=== PATIENT | male | born 1960 | race African-American/Black ===

== ENCOUNTER 2019-08-05 21:49 | Emergency (ER) | payer BC ==
[~2019-08-05] VITALS: Ht 172.7 cm; Wt 102.1 kg
[2019-08-05] MEDS ORDERED: LOVASTATIN 20 M20 MG PO (21:57)
[2019-08-05] MEDS ORDERED: METFORMIN HCL500 M3 PO (21:57)
[2019-08-05] MEDS ORDERED: PRINIVIL10 MG PO (21:57)
[2019-08-05] MEDS ORDERED: OMEPRAZOLE40 MG PO (21:57)
[2019-08-05] MEDS ORDERED: LEVEMIR FL100 UNIT/2 SUBQ (21:58)
[2019-08-05] MEDS ORDERED: NAPROSYN500 MG PO (22:37)
[2019-08-05] MEDS ORDERED: NORFLEX100 MG PO (22:37)
[2019-08-05] MEDS ORDERED: ULTRAM 50MG TAB50 MG PO (22:37)
[2019-08-05 22:50] VITALS: BP 131/75
== END 2019-08-05 22:59 | disposition home or self-care (01) ==
LOC: ER 21:49
DX: S16.1XXA Strain of muscle, fascia and tendon at neck level, initial encounter (principal); E11.9 Type 2 diabetes mellitus without complications; Z79.4 Long term (current) use of insulin; Z79.899 Other long term (current) drug therapy; V43.52XA Car driver injured in collision with other type car in traffic accident, initial encounter; Y93.I9 Activity, other involving external motion; Y92.488 Other paved roadways as the place of occurrence of the external cause; Y99.8 Other external cause status

== ENCOUNTER 2019-11-04 07:51 | Inpatient (IN) | payer BC ==
[2019-11-04] VITALS (13 sets, daily range): BP systolic 105–144; BP diastolic 61–94
[~2019-11-04] VITALS: Ht 172.7 cm; Wt 99.3 kg
[~2019-11-04 07:51] MED LIST: LEVEMIR FL100 UNIT/2 SUBQ; LOVASTATIN 20 M20 MG PO; METFORMIN HCL500 M3 PO; NAPROSYN500 MG PO; NORFLEX100 MG PO; OMEPRAZOLE40 MG PO; PRINIVIL10 MG PO; ULTRAM 50MG TAB50 MG PO
[2019-11-04 08:25] LABS: ABSOLUTE NEUTROPHILS 8.3 thou/uL (1.4-8.2); BASOPHILS 1.1 % (0.0-2.0); EOSINOPHILS 0.5 % (0.0-3.0); HEMATOCRIT 40.4 % (42.0-52.0); HEMOGLOBIN 13.6 gm/dL (14.0-18.0); MCH 29.3 pg (26.0-34.0); MCHC 33.7 g/dL (28.0-37.0); MCV 87.1 fL (80.0-100.0); MONOCYTES 7.3 % (1.0-8.0); PLATELET COUNT 279 thou/uL (150-400); POLYS 66.1 % (36.0-66.0); RBC 4.64 mil/uL (4.50-6.00); RDW 13.6 % (10.5-14.5); WBC 12.6 thou/uL (4.0-11.0)
[2019-11-04 08:33] LABS: CALCIUM 9.6 mg/dL (8.5-10.1); CREATININE 1.1 mg/dL (0.7-1.3); POTASSIUM 4.3 mmol/L (3.5-5.1)
[2019-11-04 08:49] LABS: TROPONIN-I 8.35 ng/mL (<0.06)
[2019-11-04 09:02] LABS: CHOLESTEROL 152 mg/dL (<200); HDL CHOLESTEROL 50 mg/dL (>40); LDL CHOLESTEROL 76 mg/dL (<100); TRIGLYCERIDE 132 mg/dL (<150); VLDL 26 mg/dL (<40)
--- NOTE | 2019-11-04 09:11 | EKG ---
[facility] [place] [address] ELECTROCARDIOGRAM REPORT Name: ARIK SANTO Room #: 160- ADM IN M.R.#: [id number] Admission: 11/04/19 Attend Phys: Carlos Pinto MD, Discharge: Date of : 58 Report #: [id number] THIS REPORT FOR: cc: [facility] - Clinic physician unknown [facility] - Clinic physician unknown Fidencio Olsen MD [facility] ~ THIS REPORT FOR: //name// [facility] ED Test Date: 2019-11-04 Test Time: 08:03:10 Pat Name: ARIK SANTO Department: Room: [facility] Gender: M Sagger Preparer: SELVIN ARMENTA : 1960 Requested By: Jac Wahl Order Number: [id number] MD: Fidencio Olsen Measurements Intervals [place] Rate: 104 P: 50 AR: 138 QRS: 4 QRSD: 90 T: 17 QT: 331 QTc: 436 Interpretive Statements Sinus tachycardia Anterior infarct, acute (LAD) Baseline wander in lead(s) V1,V4,V5 No previous ECG available for comparison Electronically Signed On 11-04-2019 9:09:47 CDT by Fidencio Olsen [email or web address] <ELECTRONICALLY SIGNED> By: Fidencio Olsen MD, [facility] 11/04/19908 2 2 Fidencio Olsen MD, [facility] /EPI
--- NOTE | 2019-11-04 09:12 | EKG ---
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
--- NOTE | 2019-11-04 17:40 | NUR ---
ASSUMED CARE AT 1045, PATIENT ARRIVED FROM CATHLAB S/P STENT PLACEMENT. ASSESSMENT CHARTED. PATIENT C/O CP ON ARRIVAL AND MEDARDO GRISSOM DERRICK MAN NOTIFIED, AND PATTIENT TREATED PER CP PROTOCOL. PATIENT REPORTED THAT CP PAIN IS 4/10 AT THIS TIME. SEE POST CARDIAC CATH ASSESSMENT. AND WILL CONTINUE WITH POC.
--- NOTE | 2019-11-05 05:15 | NUR ---
ASSUMED PT CARE AT 1900. PT IS ALERT AND ORIENTED. NO SIGN OF DISTRESS NOTED IN PT. RIGHT GROIN SITE IS INTACT. PT VERBALIZES CHEST PAIN AND HEADACHE. PAIN MEDICATION ADMINISTERED TO PT. ELEVATED HEART RATE NOTED. DOUBLE END SEWER NOTIFIED. LOPRESSOR ORDERED. ASSESSMENT COMPLETED AND DOCUMENTED. SCHEDULED MEDS ADMINISTERED TO PT. PT IS STABLE THROUGH THE NIGHT. NO NEEDS REQUESTED AT THIS TIME.
[2019-11-05 05:22] LABS: HEMATOCRIT 37.2 % (42.0-52.0); HEMOGLOBIN 12.7 gm/dL (14.0-18.0); MCH 29.9 pg (26.0-34.0); MCHC 34.2 g/dL (28.0-37.0); MCV 87.6 fL (80.0-100.0); RBC 4.25 mil/uL (4.50-6.00); RDW 13.3 % (10.5-14.5); WBC 12.4 thou/uL (4.0-11.0)
[2019-11-05 05:41] VITALS: BP 125/80
[2019-11-05 06:06] LABS: ALBUMIN 3.3 g/dL (3.4-5.0); CALCIUM 8.9 mg/dL (8.5-10.1); CREATININE 1.2 mg/dL (0.7-1.3); POTASSIUM 4.2 mmol/L (3.5-5.1); TOTAL BILIRUBIN 0.6 mg/dL (0.2-1.0); TOTAL PROTEIN 7.5 g/dL (6.4-8.2)
[2019-11-05 06:14] LABS: TROPONIN-I 13.88 ng/mL (<0.06)
[2019-11-05 07:15] VITALS: BP 111/75
--- NOTE | 2019-11-05 08:46 | EKG ---
[facility] [place] [address] ELECTROCARDIOGRAM REPORT Name: ARIK SANTO Room #: 200-I ADM Neelam M.R.#: [id number] Admission: 11/04/19 Attend Phys: Carlos Pinto MD, Discharge: Date of : 58 Report #: [id number] THIS REPORT FOR: cc: [facility] - Clinic physician unknown [facility] - Clinic physician unknown Fidencio Olsen MD [facility] ~ THIS REPORT FOR: //name// [facility] Test Date: 2019-11-04 Test Time: 14:08:58 Pat Name: ARIK SANTO Department: Room: 200 I Gender: M Septic Tank Setter: Familia HORN : 1960 Requested By: Linette Mcconnell Order Number: [id number] MD: Fidencio Olsen Measurements Intervals [place] Rate: 103 P: 41 [place]: 149 QRS: 25 QRSD: 82 T: 28 QT: 326 QTc: 427 Interpretive Statements Sinus tachycardia Anterior infarct, recent Compared to ECG 11/04/2019 08:23:[address] segment elevation, improved Electronically Signed On 11-05-2019 8:45:16 CDT by Fidencio Olsen [email or web address] <ELECTRONICALLY SIGNED> By: Fidencio Olsen MD, [facility] 11/05/19 0845 1408 1408 Fidencio Olsen MD, [facility] /EPI
--- NOTE | 2019-11-05 08:52 | EKG ---
[facility] [address] ELECTROCARDIOGRAM REPORT Name: ARIK SANTO Room #: 200-I [address]M 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: [facility] : 1960 Requested By: Carlos Pinto Order Number: [id number] MD: Fidencio Olsen Measurements Intervals [place] Rate: 99 P: 47 [place]: 149 QRS: 40 QRSD: 84 T: 50 QT: 326 QTc: 419 Interpretive Statements Sinus rhythm Extensive anterior infarct, recent Compared to ECG 11/04/2019 08:23:39 Sinus tachycardia no longer present Persistent ST segment elevation Electronically Signed On 11-05-2019 8:51:32 CDT by Fidencio Olsen [email or web address] <ELECTRONICALLY SIGNED> By: Fidencio Olsen MD, [facility] 11/05/19 0851 Fidencio Olsen MD, [facility] /EPI
--- NOTE | 2019-11-05 09:44 | 2DMMODE ---
[facility] [place] [address] 2 D/M-MODE ECHOCARDIOGRAM Name: ARIK SANTO Room #: 200-I ADM Neelam Parker#: [id number] Admission: 11/04/19 Attend Phys: Carlos Pinto MD, Discharge: Date of : 58 Report #: [id number] THIS REPORT FOR: cc: [facility] - Clinic physician unknown [facility] - Clinic physician unknown Carlos Pinto MD [facility] ~ APPROVED REPORT Study performed: 11/05/2019 08:46:19 EXAM: Comprehensive 2D, Doppler, and color-flow Echocardiogram Patient Location: Echo lab Room #: 200 Status: routine BSA: 2.15 HR: 100 bpm BP: 125/80 mmHg Rhythm: Sinus tach Other Information Study Quality: Good Indications NSTEMI status post PCI. Hx: DM, HTN, HLP. 2D Dimensions RVDd: 38.09 mm IVSd: 16.00 (7-11mm) LVOT Diam: 21.00 (18-24mm) LVDd: 45.00 mm PWd: 12.00 (7-11mm) Ascending Ao: 32.00 (22-36mm) LVDs: 32.00 (25-40mm) Aortic Root: 32.86 mm Volumes Left Atrial Volume (Systole) Single Plane 4CH: 44.14 mL Single Plane 2CH: 39.53 mL LA ESV Index: 21.00 mL/m2 Aortic Valve AoV Peak Johnnie.: 1.44 m/s AO Peak Gr.: 8.29 mmHg LVOT Max P.87 mmHg LVOT Max V: 1.21 m/s RUFINO Vmax: 2.82 cm2 [facility] [address] [place] [address] 2 D/M-MODE ECHOCARDIOGRAM Name: ARIK SANTO Room #: 200-I [facility].#: [id number] Admission: 11/04/19 Attend Phys: Carlos Pinto, Discharge: Date of : 58 Report #: [id number] Mitral Valve E/A Ratio: 0.8 MV Decel. Time: 119.90 ms MV E Max Johnnie.: 0.53 m/s MV A Johnnie.: 0.67 m/s MV PHT: 34.77 ms IVRT: 66.90 ms Pulmonary Valve PV Peak Johnnie.: 1.24 m/s PV Peak Gr.: 6.16 mmHg Pulmonary Vein P Vein S: 0.55 m/s P Vein D: 0.41 m/s P Vein S/D Ratio: 1.34 Tricuspid Valve RAP Estimate: 5.00 mmHg Left Ventricle The left ventricle is normal size. Regional wall motion abnormalities are noted. Mild to moderate concentric left ventricular hypertrophy. Left ventricular systolic function is mild to moderately decreased. LVEF is 40-45%.ant apical distal septal hypokinesis Mild diastolic dysfunction is present (impaired relaxation pattern). Right Ventricle The right ventricle is normal size. The right ventricular systolic function is normal. Atria The left atrium size is normal. The right atrium size is normal. Aortic Valve The aortic valve is normal in structure; minimally calcified. No aortic regurgitation is present. There is no aortic valvular stenosis. Mitral Valve The mitral valve is normal in structure. Trace to mild mitral regurgitation. No evidence of mitral valve stenosis. Tricuspid Valve The tricuspid valve is normal in structure. There is no tricuspid [facility] [address] [place] [address] 2 D/M-MODE ECHOCARDIOGRAM Name: SANTOARIK Room #: 200-I [facility] IN .R.#: [id number] Admission: 11/04/19 Attend Phys: Carlos Pinto, Discharge: Date of : 58 Report #: [id number] valve regurgitation noted. Unable to assess PA pressure. Pulmonic Valve The pulmonary valve is normal in structure. Trace pulmonic regurgitation. Great Vessels The aortic root is normal in size. The ascending aorta is normal in size. IVC is normal in size and collapses >50% with inspiration. Pericardium There is no pericardial effusion. <Conclusion> The left ventricle is normal size. Mild to moderate concentric left ventricular hypertrophy. LVEF is 40-45%.ant apical distal septal hypokinesis Mild diastolic dysfunction is present (impaired relaxation pattern). The right ventricle is normal size. The left atrium size is normal. The aortic valve is normal in structure; minimally calcified. Trace to mild mitral regurgitation. There is no tricuspid valve regurgitation noted. Unable to assess PA pressure. The aortic root is normal in size. There is no pericardial effusion. <ELECTRONICALLY SIGNED> By: Carlos Pinto MD, FACC 11/05/19941 1 1 Carlos Pinto MD, FACC /INF
[2019-11-05 11:10] VITALS: BP 94/57
--- NOTE | 2019-11-05 12:23 | CATHLAB ---
[facility] [place] [address] INVASIVE PROCEDURE REPORT Name: ARIK SANTO Room #: 200-I ADM Neelam Parker#: [id number] Admission: 11/04/19 Attend Phys: Carlos Pinto MD, Discharge: Date of : 58 Report #: [id number] THIS REPORT FOR: cc: [facility] - Clinic physician unknown [facility] - Clinic physician unknown Carlos Pinto MD [facility] ~ APPROVED REPORT Study performed: 11/04/2019 08:25:07 Patient Details Patient Status: ED Room #: The patient is a 59 year-old male Event Personnel Carlos Pinto Desizing Pad Operator, Marco Lemus RN RN, Meryl Self RN, Yusra Dowling RTR, KAILASH Murguia, Alis Poole Monitor Procedures Performed Art Access - R femoral artery* Left Heart Cath w/or w/o Coronaries [id number] [facility] Aortogram Abdominal Peripheral Angio 820479 [address] Place w/wo Plasty Single LAD 445580 Hemostasis w/ Mynx 92487 Initial Mod Sed Same Phys/QHP Gr5y 994018 24712 Mod Sed Same Phys/QHP Ea 076553 Indication Chest pain Procedure Narrative The Right Groin^ was infiltrated with subcutaneous anesthesia. A PINNACLE 6FR Sheath #[id number] sheath was inserted into the RFA 6F^. Coronary angiography was performed using coronary diagnostic catheters. The right coronary system was accessed and visualized with a JR4 catheter. The left coronary system was accessed and visualized with a JL4 catheter. The left ventricle was accessed and visualized with a STR PIG catheter. Left ventriculogram was performed in 30 degree projection. The patient tolerated the procedure well and there were no complications associated with the procedure. There was no hematoma. Intraoperative Conscious Sedation Sedation start time: 833 Case end Time: 939 [facility] [place] [address] INVASIVE PROCEDURE REPORT Name: ARIK SANTO Room #: 200-I [facility] IN .R.#: [id number] Admission: 11/04/19 Attend Phys: Carlos Pinto, Discharge: Date of : 58 Report #: [id number] Fentanyl 100 mcg Versed 1 mg Fluoro Time: 10.20 minutes Dose: DAP 11449.30 cGycm2 1733 mGy Contrast Type and Amount: Visipaque 260 ml Hemodynamics The aortic pressure is 143/49 mmHg with a mean of 89 mmHg. The left ventricular pressure is 152/16 mmHg with a mean of mmHg. The left ventricular end diastolic pressure is 26 mmHg. PCI Technique Lesion Percutaneous coronary intervention was performed on the Unspecified. A LAUNCHER 6FR EBU 3.5 #[id number] Guide Catheter was used to engage the LAD ostium. A Luge Wire .014 x 182CM #[id number] Interventional Guidewire was used to cross the lesion. BALLOON DILATION A Balloon catheter Sprinter OTW 2.5 x 12 #[id number] was inserted and inflated up to 8.00atm for 19seconds. Additional Inflation: 8.00atm for 12seconds. Additional Inflation: 0.00atm for 13seconds. ADDL INFLATION 14ATM FOR 13 SEC. STENT DEPLOYMENT A stent RESOLUTE JUAN MANUEL RX 2.75 X 12 #[id number] was inserted and inflated up to kimberley for 14ATMM FOR 28 SECseconds. Conclusion #1. Successful emergent PTCA stent of a proximally occluded LAD acute infarct vessel. Placement of a 2.75 x 15 resolute drug-eluting stent MIKKI grade III flow no dissection or thrombus noted distally. #2 left main mild calcification extremely short left main without significant occlusive disease #3 almost a separate ostial takeoff of the circumflex which is moderate in size although technically nondominant. Mild irregularities. #4 dominant right coronary artery with mild irregularities and calcification no occlusive disease #5 normal left jugular size with anterior apical hypokinesis EF 40 to 45% suspect stunning #6 normal abdominal aortogram no evidence of aneurysm bilateral renal arteries widely patent. Recommendations and plan: Continue aggressive risk factor modification. Dual antiplatelet therapy initiated. Will transfer to [address] [address] INVASIVE PROCEDURE REPORT Name: HANSAARIK Room #: 200-I [facility] IN M.R.#: [id number] Admission: 11/04/19 Attend Phys: Carlos Pinto, Discharge: Date of : 58 Report #: [id number] CCU in stable but guarded condition. Improvement in hemodynamics EKG and chest pain. Follows stent protocol. <ELECTRONICALLY SIGNED> By: Carlos Pinto MD, FACC 11/05/19 122 21 122 Carlos Pinto MD, FACC /INF
[2019-11-05 15:35] VITALS: BP 97/58
[2019-11-05 20:17] VITALS: BP 109/73
[2019-11-06 05:06] VITALS: BP 90/53
--- NOTE | 2019-11-06 05:20 | NUR ---
ASSUMED PT CARE AT 1900. PT IS ALERT AND ORIENTED. NO SIGN OF DISTRESS NOTED IN PT. PT IS STABLE. DENIES ANY PAIN. ASSESSMENT COMPLETED AND DOCUMENTED. PT IS AMBULATORY AND INDEPENDENT. VITAL SIGNS STABLE. BLOOD SUGAR CHECKED. SCHEDULED MEDS ADMINISTERED TO PT. PT IS STABLE THROUGH OUT THE NIGHT. CONTINUE TO MONITOR PT. DENIES ANY NEEDS AT THIS TIME.
[2019-11-06 05:36] LABS: HEMATOCRIT 35.4 % (42.0-52.0); MCH 29.7 pg (26.0-34.0); MCV 87.2 fL (80.0-100.0); RBC 4.06 mil/uL (4.50-6.00); RDW 13.1 % (10.5-14.5); WBC 9.6 thou/uL (4.0-11.0)
[2019-11-06 06:08] LABS: ALBUMIN 2.8 g/dL (3.4-5.0); CALCIUM 8.6 mg/dL (8.5-10.1); CREATININE 1.1 mg/dL (0.7-1.3); POTASSIUM 4.1 mmol/L (3.5-5.1); TOTAL BILIRUBIN 0.6 mg/dL (0.2-1.0); TOTAL PROTEIN 6.9 g/dL (6.4-8.2)
[2019-11-06 07:14] VITALS: BP 111/68
[2019-11-06] MEDS ORDERED: JARDIANCE10 MG PO (07:24)
[2019-11-06] MEDS ORDERED: ASPIRIN325 PO (07:24)
[2019-11-06] MEDS ORDERED: METOPROLOL SUCC50 MG PO (07:24)
[2019-11-06] MEDS ORDERED: EFFIENT10 MG PO (07:24)
[2019-11-06] MEDS ORDERED: LIPITOR40 MG PO (07:24)
[2019-11-06] MEDS ORDERED: BENICAR20 MG PO (07:24)
[2019-11-06] MEDS ORDERED: TRADJENTA5 MG PO (07:24)
[2019-11-06 09:14] VITALS: BP 111/68
--- NOTE | 2019-11-06 10:04 | NUR ---
PT.'S IV'S REMOVED AT THIS TIME, NO SIGN'S OF INFECTIN, INFILTRATION. RIGHT GROIN SITE REMAINS HEMATOMA FREE. PT. DENIES ANY CHEST PAIN AND NO SOB EITHER. "EXCITED TO GO HOME TODAY". CALLED FOR TRANSPORTATION/PICKUP. DISCUSSED HIS MEDICATION CHANGES AND CAN RESUME HIS METFORMIN NOW WITH MEALS. PT. NSR ON MONITOR, NO ECTOPY OBSERVED. DISCUSSED CARDIAC REHAB AND MANAGING HIS DIABETES.
--- NOTE | 2019-11-06 10:50 | NUR ---
Late Note: Spiritual Care Consult [id number] completed on this pateint by this News Librarian at time of assessment.
--- NOTE | 2019-11-06 10:58 | NUR ---
PT. DISCHARGED AT THIS TIME TO HOME, NO QUESTIONS AT THIS TIME. BILATERAL IV'S REMOVED. NSR ON MONITOR.
--- NOTE | 2019-11-06 13:01 | HC ---
[facility] [place] [address] CONSULTATION Name: ARIK SANTO Room #: 200-I [facility] IN .R.#: [id number] Admission: 11/04/19 Attend Phys: Carlos Pinto MD, Discharge: 11/06/19 Date of : 58 Report #: [id number] THIS REPORT FOR: cc: [facility] - Clinic physician unknown [facility] - Clinic physician unknown Julien Espinoza MD ~ CC: [facility] unknown Carlos Pinto DATE OF SERVICE: 11/05/2019 ENDOCRINE CONSULTATION NOTE CONSULTING PHYSICIAN: Dr. Pinto. REASON FOR CONSULTATION: Type 2 diabetes mellitus, uncontrolled. HISTORY OF PRESENT ILLNESS: This is a 59-year-old male patient whose medical background is significant for type 2 diabetes mellitus and hypertension, who presented yesterday with unstable angina marked by lingering chest pain over a period of 3 weeks associated with radiation to both arms and shortness of breath. The patient was identified as having an acute coronary event and was shortly thereafter managed with a stent placement in the LAD. He is doing fairly well since then. The patient's history of type 2 diabetes mellitus dates back to about 20 years. His current regimen consists of metformin 500 mg b.i.d., Levemir 6-12 units b.i.d., Humalog 6-12 units b.i.d. The patient notes that his blood glucose levels vary significantly and can go anywhere from 100 to 300 mg/dL. He does not encounter significant or frequent issues with hypoglycemia. The patient is known to have diabetic retinopathy and is undergoing injection therapy for both eyes. He is not aware of issues pertaining to diabetic nephropathy. The patient has slight sporadic encounters with peripheral neuropathy affecting his right foot. He did not have documented prior history of CAD, prior to this admission. The patient is hypertensive and is maintained on treatment with lisinopril 10 mg daily. He is also known to have hyperlipidemia and is maintained on lovastatin 20 mg daily. REVIEW OF SYSTEMS: CONSTITUTIONAL: Fatigue, tiredness, but not fever or chills or body weight changes. HEENT: Negative for sore throat, sinus pain or ear drainage. PULMONARY: Dyspnea on exertion, but not cough or hemoptysis. CARDIAC: Chest pain as noted above, radiation to both upper extremities, [address] [address] CONSULTATION Name: ARIK SANTO Room #: 200-I [facility] IN .R.#: [id number] Admission: 11/04/19 Attend Phys: Carlos Pinto MD, Discharge: 11/06/19 Date of : 58 Report #: [id number] dyspnea on exertion. GASTROINTESTINAL: Abdominal discomfort, nausea, but no vomiting. NEUROLOGY: Negative for loss of consciousness, seizure activity. Severe frequent headaches, but noted for subtle intermittent issues with right foot tingling, numbness and discomfort. PSYCHIATRIC: Negative for depression, anxiety, hallucinations, delusions. SKIN: Negative for rash, ulceration or other major changes. Otherwise, his review of systems noncontributory other than those mentioned in HPI. PAST MEDICAL HISTORY: 1. Type 2 diabetes mellitus. 2. Hypertension. 3. Hyperlipidemia. 4. Diabetic retinopathy. 5. Diabetic neuropathy. 6. GERD. 7. ST elevation myocardial infarction. OUTPATIENT MEDICATIONS: Metformin ER 500 mg b.i.d., Levemir insulin 6-12 units b.i.d., Humalog insulin 6-12 units b.i.d., lisinopril 10 mg daily, lovastatin 20 mg daily, omeprazole daily. ALLERGIES: No known drug allergies. FAMILY HISTORY: Noncontributory. 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 He is , has 5 children. He does not smoke. Drinks alcohol only occasionally. PHYSICAL EXAMINATION GENERAL: Pleasant -Maldivian male patient who is not in apparent distress. VITAL SIGNS: Blood pressure is 125/80 mmHg, heart rate is 110 beats per minute, respirations 18 per minute, temperature 37.4 degrees Celsius. CONSTITUTIONAL: He is sitting upright, appears comfortable, not in apparent distress. HEENT: Anicteric sclerae. Intact extraocular motions. NECK: Supple, without JVD. No thyromegaly. CHEST: Noted for good air entry bilaterally without wheeze or crackles. HEART: Regular rate and rhythm without murmurs or gallops. ABDOMEN: Soft, lax. No guarding. Active bowel sounds. EXTREMITIES: Lower extremity exam is negative for ankle edema, skin breaks or ulcerations. NEUROLOGIC: Awake, alert and oriented to time, place and person. The remainder [address] [address] CONSULTATION Name: ARIK SANTO Room #: 200-I [facility] IN M.R.#: [id number] Admission: 11/04/19 Attend Phys: Carlos Pinto MD, Discharge: 11/06/19 Date of : 58 Report #: [id number] of his examination is nonfocal. PSYCHIATRIC: Pleasant, interactive. Normal mood, normal affect. Normal thought process. LABORATORY RESULTS: Blood glucose on arrival was 170 and has since hovered between 231 and 269 mg/dL. Otherwise, sodium 132, potassium 4.2, chloride 96, CO2 of 26, anion gap 10, BUN 21, creatinine 1.2, glucose 201. AST 105, total bilirubin 0.6, calcium 8.9, alkaline phosphatase 61, ALT 37, total protein 67.5, albumin 3.3, eGFR 75. Troponin 13.88. Total cholesterol 152, triglycerides 132, HDL 50, LDL 76. White blood count 12.4, hemoglobin 12.7, hematocrit 37.2, platelets 257. Hemoglobin A1c 9.0%. ASSESSMENT AND PLAN: 1. Type 2 diabetes mellitus. The patient's baseline is uncontrolled judging by his hemoglobin A1c as well as by his reported blood glucose values. It is noticeable that the patient's intake of insulin is highly inconsistent. He was counseled about the pathogenesis of type 2 diabetes mellitus and about the close relationship to cardiovascular disease as well as the need to achieve and maintain adequate control. Given the occurrence of an acute coronary event, the patient would be an ideal candidate for antidiabetic agents that are known to provide significant cardiovascular disease risk reduction. Specifically, I advised the patient that on discharge, I would like him to be placed on Levemir insulin 10 units twice a day, continue with metformin ER 500 mg b.i.d., which will be on hold for 2 more days, given his recent angiogram, start Jardiance 10 mg p.o. daily, start Victoza 0.6 mg daily for a week to progress to 1.2 mg subcutaneous daily thereafter. With these changes, I would like to hold off on a regular Humalog intake and use this on an as needed basis only. The patient was counseled at length about the mechanism of action, safety and tolerability of Jardiance and Victoza since these would be newer agents to him and he verbalizes agreement and understanding of this plan. I advised him to follow up with me in 2-3 weeks from the time of his discharge. In the immediate setting, the patient is maintained on a Humalog supplemental scale only, I will start Lantus 16 units daily as of now, as well as Tradjenta daily starting now in an attempt to keep his blood glucose values below 180 mg/dL. I will continue with the Humalog supplemental scale low intensity as well as blood glucose monitoring a.c. and at bedtime. 2. Hypertension. The patient's level of blood pressure control is adequate on the current regimen, he is to continue with the same. 3. Hyperlipidemia. I agree with a transition to high intensity statin therapy given the documentation of coronary artery disease at this point. The patient was counseled about the need for aggressive LDL reduction towards lowering his future cardiovascular disease risk. 4. Coronary artery disease. As noted above, the patient had suffered an ST elevation myocardial infarction and ended up undergoing [place] [address] CONSULTATION Name: ARIK SANTO Room #: 200-I [facility] IN ..#: [id number] Admission: 11/04/19 Attend Phys: Carlos Pinto MD, Discharge: 11/06/19 Date of : 58 Report #: [id number] with stent placement in his LAD. The patient is currently stable. The patient understands the need to adhere to medical therapy towards the prevention of future cardiovascular disease, morbidity and mortality as noted above. I certainly appreciate this consultation by Dr. Pinto. <ELECTRONICALLY SIGNED> By: Julien Espinoza MD 11/06/19 1301 1055 1248 Julien Espinoza MD /nt
== END 2019-11-06 11:30 | disposition home or self-care (01) | DRG 247 ==
LOC: ER 07:51 → 2N 08:29 → TBACV 08:29 → 2N 08:41
PROVIDERS: Emergency Medicine; Nurse Practitioner Adult Health; ADMIT Internal Medicine Cardiovascular Disease; ATTEND Internal Medicine Cardiovascular Disease
PROC: 4A023N7 Measurement of Cardiac Sampling and Pressure, Left Heart, Percutaneous Approach (ICD-10-PCS; principal; 2019-11-04)
PROC: B211YZZ Fluoroscopy of Multiple Coronary Arteries using Other Contrast (ICD-10-PCS; principal; 2019-11-04)
PROC: B215YZZ Fluoroscopy of Left Heart using Other Contrast (ICD-10-PCS; principal; 2019-11-04)
PROC: 027034Z Dilation of Coronary Artery, One Artery with Drug-eluting Intraluminal Device, Percutaneous Approach (ICD-10-PCS; principal; 2019-11-04)
DX: I21.3 ST elevation (STEMI) myocardial infarction of unspecified site (principal); E11.65 Type 2 diabetes mellitus with hyperglycemia; R00.0 Tachycardia, unspecified; I10 Essential (primary) hypertension; E78.2 Mixed hyperlipidemia; E11.319 Type 2 diabetes mellitus with unspecified diabetic retinopathy without macular edema; E11.40 Type 2 diabetes mellitus with diabetic neuropathy, unspecified; K21.9 Gastro-esophageal reflux disease without esophagitis; I25.10 Atherosclerotic heart disease of native coronary artery without angina pectoris; E78.00 Pure hypercholesterolemia, unspecified; Z82.49 Family history of ischemic heart disease and other diseases of the circulatory system; Z79.899 Other long term (current) drug therapy
CPT/HCPCS: 10081

== ENCOUNTER → 2019-12-11 | Outpatient (CLI) | payer BC ==
[~2019-12-11] MED LIST changes: +ASPIRIN325 PO; +BENICAR20 MG PO; +EFFIENT10 MG PO; +JARDIANCE10 MG PO; +LIPITOR40 MG PO; +METOPROLOL SUCC50 MG PO; +TRADJENTA5 MG PO
== END ==
LOC: SJCVCIMAG 09:03
PROVIDERS: ATTEND Internal Medicine Cardiovascular Disease
DX: I51.7 Cardiomegaly (principal); I25.10 Atherosclerotic heart disease of native coronary artery without angina pectoris; I25.2 Old myocardial infarction; Z95.5 Presence of coronary angioplasty implant and graft

== ENCOUNTER → 2020-04-20 | Outpatient (CLI) | payer BC ==
[~2020-04-20] MED LIST changes: +BYSTOLIC 5 MG5 MG PO; +CIALIS5 MG PO; +PROTONIX40 M2 PO; +VICTOZA 3-0.6 MG/0.1 SUBQ
== END ==
LOC: SJCVCIMAG 16:28
PROVIDERS: ATTEND Internal Medicine Cardiovascular Disease
DX: I25.10 Atherosclerotic heart disease of native coronary artery without angina pectoris (principal); R07.9 Chest pain, unspecified; Z95.5 Presence of coronary angioplasty implant and graft

== ENCOUNTER 2020-04-22 08:07 | Observation (INO) | payer BC ==
[~2020-04-22] VITALS: Ht 172.7 cm; Wt 109.8 kg
[2020-04-22] VITALS (13 sets, daily range): BP systolic 109–156; BP diastolic 58–84
[~2020-04-22 08:07] MED LIST changes: -BYSTOLIC 5 MG5 MG PO; -CIALIS5 MG PO; -PROTONIX40 M2 PO; -VICTOZA 3-0.6 MG/0.1 SUBQ
[2020-04-22 08:53] LABS: HEMATOCRIT 40.7 % (42.0-52.0); HEMOGLOBIN 13.5 gm/dL (14.0-18.0); MCH 28.1 pg (26.0-34.0); MCHC 33.2 g/dL (28.0-37.0); MCV 84.6 fL (80.0-100.0); RBC 4.81 mil/uL (4.50-6.00); WBC 7.9 thou/uL (4.0-11.0)
[2020-04-22] MEDS ORDERED: VICTOZA 3-0.6 MG/0.1 SUBQ (09:01)
[2020-04-22] MEDS ORDERED: BYSTOLIC 5 MG5 MG PO (09:02)
[2020-04-22 09:03] LABS: CALCIUM 9.2 mg/dL (8.5-10.1); CREATININE 1.4 mg/dL (0.7-1.3); POTASSIUM 3.7 mmol/L (3.5-5.1)
[2020-04-22] MEDS ORDERED: PROTONIX40 M2 PO (09:08)
[2020-04-22] MEDS ORDERED: CIALIS5 MG PO (09:08)
--- NOTE | 2020-04-22 15:27 | CATHLAB ---
[facility] [place] [address] INVASIVE PROCEDURE REPORT Name: ARIK SANTO Room #: 211-P ADM Neelam Parker#: [id number] Admission: 04/22/20 Attend Phys: Carlos Pinto MD, Discharge: Date of : 58 Report #: [id number] THIS REPORT FOR: cc: NO FAMILY PHYSICIAN or PCP NO FAMILY PHYSICIAN or PCP Carlos Pinto MD [facility] ~ APPROVED REPORT Study performed: 04/22/2020 09:16:51 Patient Details Patient Status: Out-Patient Room #: The patient is a 59 year-old male Event Personnel Carlos Pinto Front Counter Attendant, Marco Lemus RN RN, Mario Simmons RTR ScrubRashel Alison RT(R)() Monitor, Alis Poole C4 Planner Procedures Performed Art Access - R femoral artery* Left Heart Cath w/or w/o Coronaries 3180363 [facility] Place w/wo Plasty Single CIRC 282335 Hemostasis w/ Mynx 53997 Initial Mod Sed Same Phys/QHP Gr5y 357147 14662 Mod Sed Same Phys/QHP Ea 744177 Procedure Narrative The Right Groin^ was infiltrated with 1% Lidocaine subcutaneous anesthesia. A PINNACLE 6FR Sheath #[id number] sheath was inserted into the RFA 6F^. Coronary angiography was performed using coronary diagnostic catheters. The right coronary system was accessed and visualized with a JR4 catheter. The left coronary system was accessed and visualized with a JL4 catheter. The left ventricle was accessed and visualized with a PIGTAIL catheter. The patient tolerated the procedure well and there were no complications associated with the procedure. There was no hematoma. Intraoperative Conscious Sedation Fentanyl 75 mcg Versed 1 mg Fluoro Time: 6.90 minutes Dose: DAP 10685.80 cGycm2 Contrast Type and Amount: Visipaque 100 ml Hemodynamics [facility] [place] [address] INVASIVE PROCEDURE REPORT Name: SANTOMARIELAARIK Room #: 211-P [facility] M.R.#: [id number] Admission: 04/22/20 Attend Phys: Carlos FamiliaJohn Pinto, Discharge: Date of : 58 Report #: [id number] The aortic pressure is 134/80 mmHg with a mean of 103 mmHg. The left ventricular pressure is 132/13 mmHg with a mean of mmHg. The left ventricular end diastolic pressure is 24 mmHg. PCI Technique Lesion Percutaneous coronary intervention was performed on the mid circumflex artery segment. A LAUNCHER 6FR EBU 3.5 #[id number] Guide Catheter was used to engage the ostium. A Luge Wire .014 x 182CM #[id number] Interventional Guidewire was used to cross the lesion. STENT DEPLOYMENT A drug-eluting stent RESOLUTE JUAN MANUEL OTW 2.5 X 15 #[id number] was inserted and inflated up to 8.00atm for 18seconds. Additional Inflation: 12.00atm for 31seconds. Additional Inflation: 15.00atm for 32seconds. POST STENT DEPLOYMENT BALLOON DILATION A Balloon catheter TREK NC OTW 2.75 X 12 #[id number] was inserted and inflated up to 15.00atm for 35seconds. Additional Inflation: 18.00atm for 25seconds. Conclusion #1. Successful PTCA stent of the mid distal circumflex eccentric 80 to 90% lesion to 0% placement of a 2.5 x 12 resolute drug-eluting stent MIKKI grade III flow into a 1 large distal OM branch. Nondominant moderate distribution. #2 there is a very short left main mildly diseased there is no dampening of the catheter with injection or the guide. So do not believe to be significant left main stenosis. This left main is essentially nonexistent with almost separate takeoff of LAD and circumflex. #3 the LAD extends to the apex it is a smaller and calcified vessel proximal stent has minimal in-stent restenosis. 30 to 40% irregularity proximal to that stent #4 a small ramus branch is a high-grade lesion but this is 1.0 mm vessel. No indication for intervention. #5 large right coronary artery anatomically dominant giving rise to a mild disease PDA. Moderate eccentric lesion in a small posterior lateral branch. #6 normal left ventricular size and LV function lower limits of normal subtle anterior apical wall leg. EF 50%. Recommendations and plan: Continue aggressive risk factor [address] [address] INVASIVE PROCEDURE REPORT Name: ARIK SANTO Room #: 211-P [facility] M.R.#: [id number] Admission: 04/22/20 Attend Phys: Carlos Pinto, Discharge: Date of : 58 Report #: [id number] modification. Dual antiplatelet therapy has been initiated. Patient will transfer to [facility] to follow post coronary stent protocol. <ELECTRONICALLY SIGNED> By: Carlos Pinto MD, FACC 04/22/20 1527 1527 1527 Carlos Pinto MD, FACC /INF
--- NOTE | 2020-04-22 18:16 | NUR ---
PT ADMITED FROM [facility]. ADMISSION HX AND ASSESSMENT COMPLETED. VSS. DENIED HAVING PAIN OR DISCOMFORT. RIGHT GROIN INCISION C/D/I. NO HEMATOMA NOTED. SR/SB ON TELE. NO CONCERNS AT THIS TIME.
[2020-04-23 03:21] VITALS: BP 128/67
[2020-04-23 05:42] LABS: HEMATOCRIT 39.1 % (42.0-52.0); HEMOGLOBIN 12.8 gm/dL (14.0-18.0); MCH 27.9 pg (26.0-34.0); MCHC 32.8 g/dL (28.0-37.0); MCV 85.1 fL (80.0-100.0); RBC 4.59 mil/uL (4.50-6.00); RDW 14.2 % (10.5-14.5); WBC 6.7 thou/uL (4.0-11.0)
--- NOTE | 2020-04-23 05:59 | NUR ---
ASSUME CARE 1900. PT/VITALS STABLE. SORENESS IN RIGHT GROIN BUT DENIES PAIN. GOOD TOLERANCE TO ACTIVITY. ASSESSMENT CHARTED. PROGRESSING WELL WITH POC. SR ON MONITOR. 1 STENT PLACED TO MID PROXIMAL CIRC. PLAN IS POSSIBLE DISCHARGE TODAY. WILL CONTINUE TO MONITOR AND FOLLOW WITH POC
[2020-04-23 06:08] LABS: ALBUMIN 3.5 g/dL (3.4-5.0); CALCIUM 8.9 mg/dL (8.5-10.1); CREATININE 1.2 mg/dL (0.7-1.3); POTASSIUM 3.8 mmol/L (3.5-5.1); TOTAL BILIRUBIN 0.4 mg/dL (0.2-1.0); TOTAL PROTEIN 6.8 g/dL (6.4-8.2); TROPONIN-I 0.07 ng/mL (<0.06)
[2020-04-23 07:20] VITALS: BP 131/67
[2020-04-23 08:00] VITALS: BP 131/67
[2020-04-23 09:39] VITALS: BP 131/67
--- NOTE | 2020-04-23 09:48 | NUR ---
PT CARE ASSUMED AT 0700. ASSESSMENT CHARTED. MEDICATION CHARTED. RAC IV. UP AD MAXWELL. 04/22/20 CATH; RT GROIN, MYNX; MID PROX CIRC. ACHS. PT TO BE DISCHARGED HOME. TELEMETRY D/C'D. IV D/C'D. DISCHARGE PAPERWORK SIGNED.
--- NOTE | 2020-04-23 11:21 | EKG ---
[facility] [place] [address] ELECTROCARDIOGRAM REPORT Name: ARIK SANTO Room #: 211- ADM [facility] M.R.#: [id number] Admission: 04/22/20 Attend Phys: Carlos Pinto MD, Discharge: Date of : 58 Report #: [id number] THIS REPORT FOR: cc: NO FAMILY PHYSICIAN or PCP NO FAMILY PHYSICIAN or PCP Lauri Cuevas MD ~ THIS REPORT FOR: //name// [facility] Test Date: 2020-04-23 Test Time: 07:37:36 Pat Name: ARIK SANTO Department: Room: 211 P Gender: M Senior Mechanical Engineer: BERNIE : 1960 Requested By: Linette Mcconnell Order Number: [id number] MD: Lauri Cuevas Measurements Intervals [place] Rate: 70 P: 30 IN: 169 QRS: 11 QRSD: 91 T: 60 QT: 391 QTc: 422 Interpretive Statements Sinus rhythm Anterior infarct, old Compared to ECG 11/05/2019 07:24:44 No significant changes Electronically Signed On 04-23-2020 11:21:29 UTILITY PERSON by Lauri Cuevas [email or web address] <ELECTRONICALLY SIGNED> By: Lauri Cuevas MD 04/23/20 1121 0737 0737 Lauri Cuevas MD /EPI
== END 2020-04-23 10:00 | disposition home or self-care (01) ==
LOC: CATH 08:07 → 2N 13:02
PROVIDERS: Nurse Practitioner Adult Health; ADMIT Internal Medicine Cardiovascular Disease; ATTEND Internal Medicine Cardiovascular Disease
DX: I25.10 Atherosclerotic heart disease of native coronary artery without angina pectoris (principal); I10 Essential (primary) hypertension; E78.5 Hyperlipidemia, unspecified; E11.9 Type 2 diabetes mellitus without complications; I25.2 Old myocardial infarction; Z79.4 Long term (current) use of insulin; Z79.899 Other long term (current) drug therapy

== ENCOUNTER 2020-05-24 05:48 | Emergency (ER) | payer BC ==
[~2020-05-24] VITALS: Ht 172.7 cm; Wt 106.6 kg
[~2020-05-24 05:48] MED LIST changes: +BYSTOLIC 5 MG5 MG PO; +CIALIS5 MG PO; +PROTONIX40 M2 PO; +VICTOZA 3-0.6 MG/0.1 SUBQ
[2020-05-24 06:31] LABS: ABSOLUTE NEUTROPHILS 4.3 thou/uL (1.4-8.2); BASOPHILS 1.1 % (0.0-2.0); EOSINOPHILS 3.7 % (0.0-3.0); HEMATOCRIT 38.5 % (42.0-52.0); HEMOGLOBIN 12.6 gm/dL (14.0-18.0); LYMPHOCYTES 39.2 % (24.0-44.0); MCH 27.7 pg (26.0-34.0); MCHC 32.6 g/dL (28.0-37.0); MCV 84.8 fL (80.0-100.0); MONOCYTES 6.9 % (1.0-8.0); PLATELET COUNT 272 thou/uL (150-400); POLYS 49.1 % (36.0-66.0); RBC 4.54 mil/uL (4.50-6.00); RDW 15.1 % (10.5-14.5); WBC 8.8 thou/uL (4.0-11.0)
[2020-05-24 06:39] LABS: ANION GAP 9 mmol/L (7-16); BUN 23 mg/dL (7-18); CALCIUM 9.5 mg/dL (8.5-10.1); CHLORIDE 103 mmol/L (98-107); CO2 27 mmol/L (21-32); CREATININE 1.2 mg/dL (0.7-1.3); GLUCOSE 233 mg/dL (74-106); POTASSIUM 4.2 mmol/L (3.5-5.1); SODIUM 139 mmol/L (136-145)
[2020-05-24 06:48] LABS: TROPONIN-I <0.06 ng/mL (<0.06)
--- NOTE | 2020-05-24 08:58 | EKG ---
[address] [address] [facility] [place] [address] ELECTROCARDIOGRAM REPORT Name: ARIK [facility]ANTO [id number] Admission: 05/24/20 Attend Phys: Discharge: Date of : 58 Report #: [id number] [facility] ED Test Date: 2020-05-24 Test Time: 05:58:44 Pat Name: ARIK SANTO Department: Room: Gender: M Peoplesoft Functional Analyst: anca : 1960 Requested By: Maxim Pepper Order Number: [id number] MD: Kojo Villalobos Measurements Intervals [place] Rate: 84 P: 38 MD: 159 QRS: 3 QRSD: 90 T: 63 QT: 367 QTc: 434 Interpretive Statements Sinus rhythm Low voltage, precordial leads Probable anteroseptal infarct, old Compared to ECG 04/23/2020 07:37:36 Low QRS voltage now present Myocardial infarct finding still present Electronically Signed On 05-24-2020 8:57:55 TIME STUDY STATISTICIAN by Kojo Villalobos [email or web address] <ELECTRONICALLY SIGNED> By: Kojo Villalobos MD, [facility] 05/24/20 0857 D: 12/557 0558 Kojo Villalobos MD, FACC /EPI
[2020-05-24 11:12] VITALS: BP 119/76
== END 2020-05-24 11:34 | disposition home or self-care (01) ==
LOC: ER 05:48
PROVIDERS: Emergency Medicine
DX: R06.00 Dyspnea, unspecified (principal); R42 Dizziness and giddiness; R07.89 Other chest pain; M79.89 Other specified soft tissue disorders; E11.9 Type 2 diabetes mellitus without complications; I25.10 Atherosclerotic heart disease of native coronary artery without angina pectoris; I25.2 Old myocardial infarction; I10 Essential (primary) hypertension; E78.5 Hyperlipidemia, unspecified; Z79.899 Other long term (current) drug therapy; Z79.82 Long term (current) use of aspirin; Z79.4 Long term (current) use of insulin; Z98.890 Other specified postprocedural states

== ENCOUNTER 2021-01-22 04:52 | Emergency (ER) | payer BC ==
[~2021-01-22] VITALS: Ht 175.3 cm; Wt 104.3 kg
[2021-01-22 06:01] LABS: ABSOLUTE NEUTROPHILS 8.6 thou/uL (1.4-8.2); BASOPHILS 0.4 % (0.0-2.0); EOSINOPHILS 0.9 % (0.0-3.0); HEMATOCRIT 40.1 % (42.0-52.0); HEMOGLOBIN 13.4 gm/dL (14.0-18.0); LYMPHOCYTES 25.3 % (24.0-44.0); MCH 28.6 pg (26.0-34.0); MCHC 33.4 g/dL (28.0-37.0); MCV 85.8 fL (80.0-100.0); MONOCYTES 2.1 % (1.0-8.0); PLATELET COUNT 254 thou/uL (150-400); POLYS 71.3 % (36.0-66.0); RBC 4.67 mil/uL (4.50-6.00); RDW 14.2 % (10.5-14.5)
[2021-01-22 06:19] LABS: CALCIUM 9.1 mg/dL (8.5-10.1); CREATININE 1.3 mg/dL (0.7-1.3)
[2021-01-22 06:29] LABS: ALBUMIN 3.7 g/dL (3.4-5.0); MAGNESIUM 1.9 mg/dL (1.8-2.4); TOTAL BILIRUBIN 0.8 mg/dL (0.2-1.0); TOTAL PROTEIN 7.5 g/dL (6.4-8.2)
--- NOTE | 2021-01-22 07:27 | EKG ---
[address] [address] ELECTROCARDIOGRAM REPORT Name: ARIK SANTO Room #: REG [facility]#: [id number] Admission: 01/22/21 Attend Phys: Discharge: Date of : 58 Report #: [id number] [facility] ED Test Date: 2021-01-22 Test Time: 05:35:15 Pat Name: ARIK SANTO Department: Room: Gender: M Profiler Hand: : 1960 Requested By: Migdalia Brown Order Number: [id number] MD: Kojo Villalobos Measurements Intervals [place] Rate: 84 P: 37 RI: 162 QRS: 3 QRSD: 92 T: 65 QT: 371 QTc: 439 Interpretive Statements Sinus rhythm Anterior infarct, old Compared to ECG 01/22/2021 04:57:38 No significant changes Electronically Signed On 01-22-2021 7:26:53 CDT by Kojo Villalobos [email or web address] <ELECTRONICALLY SIGNED> By: Kojo Villalobos MD, [facility] 01/22/21 0726 0535 0535 Kojo Villalobos MD, FACJane /EPI
--- NOTE | 2021-01-22 07:27 | EKG ---
[place] [address] [facility] [place] [address] ELECTROCARDIOGRAM REPORT Name: ARIK SANTO Room #: REG [facility]#: [id number] Admission: 01/22/21 Attend Phys: Discharge: Date of : 58 Report #: [id number] [facility] ED Test Date: 2021-01-22 Test Time: 04:57:38 Pat Name: ARIK SANTO Department: Room: Gender: M Shrimp Trawler Captain: ANA : 1960 Requested By: Migdalia Brown Order Number: [id number] MD: Kojo Villalobos Measurements Intervals [place] Rate: 85 P: 39 RI: 153 QRS: 20 QRSD: 91 T: 69 QT: 355 QTc: 422 Interpretive Statements Sinus rhythm Low voltage, precordial leads Anteroseptal infarct, old Compared to ECG 05/24/2020 05:58:44 No significant changes Electronically Signed On 01-22-2021 7:26:50 CDT by Kojo Villalobos [email or web address] <ELECTRONICALLY SIGNED> By: Kojo Villalobos MD, [facility] 01/22/21 0726 0457 0457 Kojo Villalobos MD, FACC /EPI
[2021-01-22 10:12] VITALS: BP 114/60
== END 2021-01-22 10:12 | disposition home or self-care (01) ==
LOC: ER 04:52
PROVIDERS: Emergency Medicine
DX: R07.89 Other chest pain (principal); Z20.822 Contact with and (suspected) exposure to COVID-19; R11.2 Nausea with vomiting, unspecified; E11.9 Type 2 diabetes mellitus without complications; I10 Essential (primary) hypertension; E78.5 Hyperlipidemia, unspecified; Z79.4 Long term (current) use of insulin; Z79.899 Other long term (current) drug therapy

== ENCOUNTER → 2021-05-10 | Outpatient (CLI) | payer BC | LOC: SJCVCIMAG 11:35 | PROVIDERS: ATTEND Internal Medicine Cardiovascular Disease | DX: I25.10 Atherosclerotic heart disease of native coronary artery without angina pectoris (principal); R07.9 Chest pain, unspecified; Z95.5 Presence of coronary angioplasty implant and graft ==